=== PATIENT | male | born 1990 | race Caucasian/White ===

== ENCOUNTER 2021-01-30 12:08 | Emergency (ER) | payer OTHER ==
[~2021-01-30] VITALS: Ht 182.9 cm; Wt 90.0 kg
--- NOTE | 2021-01-30 12:15 | PHYS DOC ---
Adult General HPI HPI Patient is a 30-year-old male presents emergency department for evaluation of a left knee injury he sustained this past Wednesday morning 01/27/2021 at approximately 5:30 AM. Patient states he was at work, accidentally tripped over a metal ground jojo protruding from the ground and landed on another metal ground jojo protruding approximately 4 to 5 inches from the ground directly on his left knee. Patient denies any other injury related to this event. Patient states he did not seek medical care at the time of the incident, states this is the first time he is seeking medical care for this incident. Patient states it tore his clothing and injured the skin of his left knee. Patient states he has been daily cleansing with alcohol wipes and applying Neosporin with a Band-Aid to treat. Patient states it seems to be healing well but he is having left knee pain that he rates a 9/10 pain on a 1-10 pain scale. Patient states he has not taken any medications for the pain at home since the incident. Patient states at rest it does not hurt so bad but increases in pain when he stands or moves his knee. Patient denies any other physical complaints or physical concerns. Patient reports a medication allergy to OxyContin, denies take any prescription medications at home. Patient states he is a cigarette smoker, drinks alcoholic beverages occasionally, states does not use any illicit drugs. Patient reports his tetanus immunization is up-to-date. Review of Systems Review of Systems 14 body systems of review of systems have been reviewed. See HPI for pertinent positives and negative responses, otherwise all other systems are negative, nonpertinent or noncontributory. Physical Exam Physical Exam Constitutional: Well developed, well nourished, no acute distress, non-toxic appearance. 30-year-old male in no apparent distress. Appears clinically sobe r, no apparent smell of EtOH use. HENT: Normocephalic, atraumatic, bilateral external ears normal, nose normal for visual appearance, patient was wearing COVID-19 protective mask during physical exam. Eyes: EOMI, conjunctiva normal, no discharge. Neck: Normal range of motion, denies tenderness. Cardiovascular: Distal cap refill less than 2 seconds, the patient is not cyanotic. Lungs & Thorax: No audible adventitious lung sounds appreciated, the patient is in no respiratory distress. Skin: Warm, dry, no erythema, no rash. Except for left knee, see extremity note. Extremities: No tenderness, no cyanosis, no clubbing, ROM intact, no edema. Except for left knee, there is an approximate 0.5 cm x 0.3 cm abrasion to the medial aspect knee, there is a 0.5 cm diameter abrasion just inferior to previously noted abrasion. Well healing skin abrasions, slight erythema around abrasion sites with poorly demarcated border, no drainage appreciated, no purulence appreciated. Pain to palpation along medial aspect knee, decreased sensation around knee area to palpation. No swelling appreciated, no crepitus appreciated, distal cap refill less than 2 seconds. Pain with passive range of motion to the knee, negative anterior drawer knee test, Cabrera's test, valgus and varus tests negative for ligamentous injury. Ambulates with slight favoring of left lower extremity. Neurologic: Alert and oriented X 3, normal motor function, normal sensory function, no focal deficits noted. Psychologic: Affect normal, judgement normal, mood normal. EKG EKG [] Radiology/Procedures Radiology/Procedures PATIENT: LISA CAMPBELL ACCOUNT: [id number] : 1990 LOCATION: ER AGE: 30 SEX: M EXAM STATUS: REG ER ORD. PHYSICIAN: RYDER HILLS APRN REASON: Pt fell, abrasion to anterior knee. PROCEDURE: KNEE LEFT 3V XR KNEE _3 VIEWS_LT History: Fall. Abrasion to anterior knees. Comparison: None. Technique: 3 views of the left knee. Findings: Osseous mineralization is normal. No fracture or dislocation. No significant degenerative changes. Trace suprapatellar effusion. No focal soft tissue swelling. Impression: 1. Trace suprapatellar effusion without acute osseous abnormality of the left knee. Electronically signed by: Gwyn Coffman MD (01/30/2021 12:44 PM) [facility] DICTATED AND SIGNED BY: GWYN COFFMAN MD DATE: 01/30/21 1243 CC: RYDER HILLS APRN; PCP,UNKNOWN ~MTH0 0 Heart Score C/O Chest Pain: No Risk Factors: Risk Factors: DM, Current or recent (<one month) smoker, HTN, HLP, family history of CAD, obesity. Risk Scores: Risk Factors: DM, Current or recent (<one month) smoker, HTN, HLP, family history of CAD, obesity. Course & Med Decision Making Course & Med Decision Making Pertinent Labs and Imaging studies reviewed. (See chart for details) 30-year-old male, vital signs reviewed, presents emergency department concerning for left knee injury after trip and fall onto metal jojo protruding from ground. Physical examination concerning for possible bony injury, x-ray of the left knee was performed. Patient has 2 abrasions to the left knee, well-healing, patient has been daily cleansing and [id number] antibiotic ointment applications with Band-Aid. There was no sign symptom of infectious process. Patient was treated with 1 tablet 5/325 [place] and 1 600 mg ibuprofen tablet for 9/10 pain. X-ray read negative for acute bony injury, shows trace suprapatellar effusion. Will treat with Sanjeev wrap, elevation, ice applications, RICE therapy. Upon reevaluation of the patient, patient states the pain medications given in the ED today helped some. Discussed x-ray findings with patient, discussed RICE therapy, rest, ice, compression, elevation. Will give patient 2 days work excuse with strict follow-up recommendation with primary care physician for reevaluation of knee, continue to cleanse abrasions daily with soap and water and apply antibiotic ointment with Band-Aid, discussed cigarette smoking cessation, patient gave verbal understanding of discharge home instructions, RICE therapy, wound abrasion cleansing and treatment, return to ER precautions and concerns, patient had no further questions or concerns, was discharged home without incident. Dragon Disclaimer Dragon Disclaimer This electronic medical record was generated, in whole or in part, using a voice recognition dictation system. Departure Departure: Impression: Primary Impression: Contusion of left knee Additional Impressions: Abrasion, left knee, initial encounter Cigarette smoker Disposition: 01 DC HOME SELF CARE/HOMELESS Condition: GOOD Referrals: PCP,UNKNOWN (PCP) Patient Instructions: Abrasions, Elastic Bandage and RICE, Knee Pain, RICE - Routine Care for Injuries Additional Instructions: You were evaluated in the emergency department today for a injury to your left knee, x-ray did not show any signs of a fracture, we have discussed RICE therapy, we have discussed application of Sanjeev bandage and use, we have discussed cleansing and wound care of your abrasion, I have attached education information regarding abrasion care, RICE therapy, and knee pain, please review. We have discussed cigarette smoking cessation. Please follow-up with your primary care physician and/or healthcare provider for reevaluation of your knee injury in 2 days. Return to the emergency department for worsening symptoms or other concerns. EMERGENCY DEPARTMENT GENERAL DISCHARGE INSTRUCTIONS Thank you for coming to [facility] (ED) today and trusting us with you care. We trust that you had a positivie experience in our Emergency Department. If you wish to speak to the department management, you may call the director at [phone]. YOUR FOLLOW UP INSTRUCTIONS ARE FOLLOWS: 1. Do you have a private Doctor? If you do not have a private doctor, please ask for a resource list of physicians or clinics that may be able to assist you with follow up care. 2. The Emergency Physician has interpreted your x-rays. The X-Ray specialist will also review them. If there is a change in the findings, you will be notified in 48 hours when at all possible. 3. A lab test or culture has been done, your results will be reviewed and you will be notified if you need a change in treatment. ADDITIONAL INSTRUCTIONS AND INFORMATION: 1. Your care today has been supervised by a physician who is specially trained in emergency care. Many problems require more than one evaluation for a complete diagnosis and treatment. We recommend that you schedule your follow up appointment as recommended to ensure complete treatment of you illness or injury. If you are unable to obtain follow up care and continue to have a problem, or if your condition worsens, we recommend that you return to the ED. 2. We are not able to safely determine your condition over the phone nor are we able to give sound medical advice over the phone. For these safety reasons, if you call for medical advice we will ask you to come to the ED for further evaluation. 3. If you have any questions regarding these discharge instructions please call the ED at [phone]. SAFETY INFORMATION: In the interest of safety, wellness, and injury prevention; we encourage you to wear your sealbelt, if you smoke; quite smoking, and we encourage family to use a protective helmet for bicycling and other sporting events that present an increased risk for head injury. IF YOUR SYMPTOMS WORSEN OR NEW SYMPTOMS DEVELOP, OR YOU HAVE CONCERNS ABOUT YOUR CONDITION; OR IF YOUR CONDITION WORSENS WHILE YOU ARE WAITING FOR YOUR FOLLOW UP APPOINTMENT; EITHER CONTACT YOUR PRIMARY CARE DOCTOR, THE PHYSICIAN WHOSE NAME AND NUMBER YOU WERE GIVEN, OR RETURN TO THE ED IMMEDIATELY. Scripts Ibuprofen (IBUPROFEN) 600 Mg Tablet 600 MG PO TID PRN PRN for PAIN, #20 TAB 0 Refills Prov: RYDER HILLS APRN 01/30/21 Problem Qualifiers Primary Impression: Contusion of left knee Encounter type: initial encounter Qualified Codes: S80.02XA - Contusion of left knee, initial encounter RYDER HILLS APRN Jan 30, 2021 12:15
[2021-01-30 12:18] VITALS: BP 131/92
[2021-01-30] MEDS: HYDROcodone/APAP 5/325MG 1 TAB TABLET PO ONE (12:44)
[2021-01-30] MEDS: BACITRACIN ZINC TOPICAL OINT PACKET. TP ONE (12:44)
[2021-01-30] MEDS: IBUPROFEN 600 MG TABLET. PO ONE (12:45)
--- NOTE | 2021-01-30 12:46 | RAD ---
XR KNEE _3 VIEWS_LT History: Fall. Abrasion to anterior knees. Comparison: None. Technique: 3 views of the left knee. Findings: Osseous mineralization is normal. No fracture or dislocation. No significant degenerative changes. Tr aleena suprapatellar effusion. No focal soft tissue swelling. Impression: 1. Trace suprapatellar effusion without acute osseous abnormality of the left knee. Electronically signed by: Gwyn Coffman MD (01/30/2021 12:44 PM) [facility]
[2021-01-30] MEDS ORDERED: IBUP600T16 PO (13:25)
== END 2021-01-30 13:42 | disposition home or self-care (01) ==
LOC: ER 12:08
DX: S80.02XA Contusion of left knee, initial encounter (principal); W01.0XXA Fall on same level from slipping, tripping and stumbling without subsequent striking against object, initial encounter; Y93.89 Activity, other specified; Y92.89 Other specified places as the place of occurrence of the external cause; Y99.8 Other external cause status
CPT/HCPCS: 73562; 99284